=== PATIENT | male | born 1940 | race Caucasian/White ===

== ENCOUNTER 2024-09-20 16:48 | Emergency (ER) | payer OTHER ==
[~2024-09-20] VITALS: Ht 177.8 cm; Wt 99.8 kg
[2024-09-20 17:13] LABS: BASOPHILS # (AUTO) 0.06 K/uL (0.00-0.20); BASOPHILS % (AUTO) 0.6 % (0.0-5.0); EOSINOPHILS # (AUTO) 0.15 K/uL (0.00-0.70); EOSINOPHILS % (AUTO) 1.6 % (0.0-8.0); HEMATOCRIT 33.9 % (42-54); IMMATURE GRANULOCYTE ABSOLUTE 0.07 K/uL (0-1); LYMPHOCYTES # (AUTO) 1.8 K/uL (1.0-4.8); LYMPHOCYTES % (AUTO) 18.8 % (21.0-51.0); MEAN CORPUSCULAR HGB CONC 33.6 g/dL (32.0-36.0); MEAN CORPUSCULAR VOLUME 86.3 fL (79-99); MONOCYTES # (AUTO) 0.8 K/uL (0.1-1.0); MONOCYTES % (AUTO) 8.5 % (3.0-13.0); NEUTROPHILS # (AUTO) 6.5 K/uL (1.8-7.7); NEUTROPHILS % (AUTO) 69.8 % (40.0-77.0); PLATELET COUNT (AUTO) 237 K/uL (130-400); RED BLOOD CELL COUNT(AUTO) 3.93 MIL/uL (4.50-6.20); RED CELL DISTRIBUTION WIDTH 13.2 % (11.0-15.5); WHITE BLOOD COUNT (AUTO) 9.3 K/uL (4.8-10.8)
[2024-09-20 17:21] LABS: CREATININE 1.4 mg/dL (0.5-1.3); POTASSIUM 4.4 mmol/L (3.5-5.1)
[2024-09-20 17:28] LABS: ALBUMIN 3.1 g/dL (3.5-5.0); BILIRUBIN,DIRECT 0.1 mg/dL (0.0-0.3); BILIRUBIN,TOTAL 0.4 mg/dL (0.2-1.0); MAGNESIUM 1.6 mg/dL (1.80-2.40); TOTAL PROTEIN, SERUM 7.1 g/dL (6.0-8.3)
--- NOTE | 2024-09-20 17:55 | NUR ---
PATIENT IN ER LOBBY, PENDING IV SITE & CONSENT FOR CT EXAM.
[2024-09-20] MEDS ORDERED: 0.9%NACL 1000ML 1,000 ML IV ONE (18:00)
--- NOTE | 2024-09-20 18:05 | ERN ---
General Chief Complaint: Abnormal Labs Stated Complaint: ABNORMAL LABS Time Seen by MD: 16:51 History of Present Illness Initial Comments 84-year-old male, history of diabetes, hypertension, atrial fibrillation, cardiac stents, [facility] Patient reports that he has had a few episodes of vomiting yesterday with some epigastric discomfort. He describes an acidic taste in his mouth. He also recently had bronchitis but currently does not have any cough or congestion or fever. He had routine labs drawn and was told that he had a low-sodium, high potassium, and a high blood glucose, which is why he came to the ER. Currently he denies any chest pain or shortness of breath. Denies abdominal pain. He denies any nausea or vomiting diarrhea or dysuria. Past Medical History Past Medical History: A-Fib, Diabetes-Type II Past Surgical History: Other Surgical History Other: ABLATION ROS Dictation CONSTITUTIONAL: No chills, no fever, no weakness, no diaphoresis, no malaise. HEAD/FACE: No signs of trauma. EENT: No eye pain, no blurred vision, no tearing, no double vision, no ear pain, no ear discharge, no nose pain, no nasal congestion, no throat pain, no throat swelling, no mouth pain. RESPIRATORY: No cough, no orthopnea, no SOB, no stridor, no wheezing. CARDIOVASCULAR: No chest pain, no edema, no palpitations, no syncope. GASTROINTESTINAL/ABDOMINAL: No abdominal pain, no constipation, no diarrhea, no nausea, no vomiting. GENITOURINARY: No abnormal discharge, no dysuria, no frequent urination, no hematuria. No complaints of pain in the genitals. MUSCULOSKELETAL: No back pain, no gout, no joint pain, no joint swelling, no muscle pain, no muscle stiffness, no neck pain. INTEGUMENTARY: No change in color, no change in hair/nails, no dryness, no lesion, no lumps, no rash. NEUROLOGICAL/PSYCH: No anxiety, not depressed, no emotional problem, no headache, no numbness, no pre-existing deficit, no history of seizures, no tremors, no weakness. HEMATOLOGIC/LYMPHATIC: Not anemic, no history of blood clots, no apparent bleeding, no bruising, glands not swollen. All Systems Negative, Except as Noted. Physical Exam Physical Exam Dictation VITAL SIGNS: Reviewed. GENERAL APPEARANCE: Alert, oriented x3, no acute distress, obese. HEAD AND FACE: Non-traumatic. EYES: PERRL, pink conjunctivas, eyelid no trauma, anterior chamber clear. EARS: Pinnas intact and no signs of trauma or erythema. Ear canals clear and no discharge. TMs no erythema. NOSE: No discharge, no bleeding. OROPHARYNX: Mouth normal, teeth no caries, tongue pink. Pharynx clear, no erythema. Tonsils no exudates, no abscesses noted. Mucous membrane moist. NECK: Supple, non-tender, no thyromegaly, no masses, no JVD, no bruits. BREAST: Deferred. CHEST: No tenderness, no crepitus, no paradoxical movement, no retractions. LUNGS: Clear, well-ventilated, symmetric, no rales, no wheezing, no rhonchi, no stridor, good breath sounds bilaterally. HEART: Regular rate, regular rhythm, no murmur, no gallops. VASCULAR: No peripheral edema. ABDOMEN: Soft, positive bowel sounds, nondistended, no guarding, nontender, no rebound, no masses no hepatomegaly, no splenomegaly, no Morris's sign, no hernias. RECTAL: Deferred. GENITAL: Deferred. NEUROLOGICAL: Normal speech, gross motor function intact, gross sensory function intact. MUSCULOSKELETAL: Neck nontender, full range of motion, back nontender, full range of motion. EXTREMITIES: Nontender, full range of motion. SKIN: Color pink, dry, no turgor, no rash, no lacerations, no abrasions, no contusions. LYMPHATICS: Deferred. Results Laboratory and Microbiology Lab and Micro Result Laboratory Tests Test 09/20/24 17:06 09/20/24 17:43 White Blood Count 9.3 K/uL (4.8-10.8) Red Blood Count 3.93 MIL/uL (4.50-6.20) L Hemoglobin 11.4 g/dL (14.0-18.0) L Hematocrit 33.9 % (42-54) L Mean Corpuscular Volume 86.3 fL (79-99) Mean Corpuscular Hemoglobin 29.0 pg (27.0-33.0) Mean Corpuscular Hemoglobin Concent 33.6 g/dL (32.0-36.0) Red Cell Distribution Width 13.2 % (11.0-15.5) Platelet Count 237 K/uL (130-400) Mean Platelet Volume 11.6 fL (7.5-10.5) H Immature Granulocyte % (Auto) 0.7 % (0-1) Neutrophils (%) (Auto) 69.8 % (40.0-77.0) Lymphocytes (%) (Auto) 18.8 % (21.0-51.0) L Monocytes (%) (Auto) 8.5 % (3.0-13.0) Eosinophils (%) (Auto) 1.6 % (0.0-8.0) Basophils (%) (Auto) 0.6 % (0.0-5.0) Neutrophils # (Auto) 6.5 K/uL (1.8-7.7) Lymphocytes # (Auto) 1.8 K/uL (1.0-4.8) Monocytes # (Auto) 0.8 K/uL (0.1-1.0) Eosinophils # (Auto) 0.15 K/uL (0.00-0.70) Basophils # (Auto) 0.06 K/uL (0.00-0.20) Absolute Immature Granulocyte (auto 0.07 K/uL (0-1) Nucleated Red Blood Cells 0.0 % (0.0-0.19) Sodium Level 130 mmol/L (136-145) L Potassium Level 4.4 mmol/L (3.5-5.1) Chloride Level 94 mmol/L (101-111) L Carbon Dioxide Level 28 mmol/L (21-32) Blood Urea Nitrogen 39 mg/dL (7-18) H Creatinine 1.4 mg/dL (0.5-1.3) H Glomerular Filtration Rate Calc 50 mL/min (>90) Random Glucose 379 mg/dL (70-105) H Total Calcium 10.2 mg/dL (8.5-10.1) H Magnesium Level 1.60 mg/dL (1.80-2.40) L Total Bilirubin 0.4 mg/dL (0.2-1.0) Direct Bilirubin 0.1 mg/dL (0.0-0.3) Aspartate Amino Transf (AST/SGOT) 12 U/L (10-37) Alanine Aminotransferase (ALT/SGPT) 17 U/L (12-78) Alkaline Phosphatase 102 U/L (50-136) Total Creatine Kinase 103 U/L (21-232) Troponin I High Sensitivity 17.6 ng/L (4-75) B-Type Natriuretic Peptide 68 pg/mL (0-100) Total Protein 7.1 g/dL (6.0-8.3) Albumin 3.1 g/dL (3.5-5.0) L Lipase 44 U/L (16-77) Urine Color LIGHT-YELLOW (YELLOW) Urine Appearance CLEAR (CLEAR) Urine pH 6.0 (5.0-8.0) Urine Specific Plaza 1.012 (1.001-1.031) Urine Protein 30 mg/dL (NEGATIVE) H Urine Glucose (UA) >=1000 mg/dL (NEGATIVE) H Urine Ketones NEGATIVE mg/dL (NEGATIVE) Urine Occult Blood NEGATIVE (NEGATIVE) Urine Nitrate NEGATIVE (NEGATIVE) Urine Bilirubin NEGATIVE mg/dL (NEGATIVE) Urine Urobilinogen 0.2 mg/dL (0.2-1.0) Urine Leukocyte Esterase NEGATIVE Angelica/uL Urine RBC 0-1 /HPF (0-1) Urine WBC 0-1 /HPF (0-1) Urine Bacteria None /HPF (None Seen) MDM CC: Epigastric pain vomiting and nausea yesterday Comorbidities: AFib, diabetes, hypertension, cardiac stent, obesity, advanced age Limitations by social determinants of health: None Differential diagnosis: Electrolyte abnormality, cardiac arrhythmia, GERD, biliary disease, other. EKG: Sinus rhythm rate of 89, left axis deviation, right bundle branch block morphology. No STEMI. Independently interpreted by me. Vital signs: Mild hypertension 145/101, otherwise unremarkable. External chart review: I reviewed the patient's lab work dated September 10, 2024. The CBC is normal. The metabolic panel shows a potassium of 5.6 and a sodium of 127. Bicarb 23. The glucose is 497. Creatinine 1.4. Liver enzymes are within normal limits. The patient's A1c is 14.2. Lab work: CBC shows mild normocytic anemia hemoglobin 11.4. No bands, no shift. Chemistry panel shows a sodium of 130 chloride 94 consistent with dehydration. Creatinine 1.4 BUN of 39, elevated BUN to creatinine ratio consistent with dehydration. GFR is 50. Baseline for patient. Glucose 379. No signs of DKA. Troponin is normal. Lipase is normal. took over the case from previous day shift ER physician: I evaluated the patient at bedside, I will review all the labs there is no alarming abnormality in the laboratory workup. Patient was re-evaluate, denies nausea denies vomiting denies abdominal pain. I will proceed with discharge the patient home with recommendation to come to the emergency department if any symptoms like chest pain, abdominal pain, nausea or vomiting. Patient and was on agreement with the plan. We will not proceed with CT scan of abdomen since patient is feeling better. He must follow up with his primary care physician in the next 24-48 hours. ED Course Orders Procedure Category Date Status Time 12 Lead Ekg Tracing- EKG 09/20/24 Complete Technical 16:53 Cardiac Panel LAB 09/20/24 Complete 16:55 Cbc With Differential LAB 09/20/24 Complete 16:55 Basic Metabolic Panel LAB 09/20/24 Complete 16:55 B-Type Natriuretic LAB 09/20/24 Complete Peptide 16:55 Magnesium LAB 09/20/24 Complete 16:55 Urinalysis Profile LAB 09/20/24 Complete 16:55 Lipase LAB 09/20/24 Complete 16:55 Hepatic Function Panel LAB 09/20/24 Complete 16:55 12 Lead Ekg Tracing- EKG 09/20/24 Complete Technical 16:55 0.9%Nacl 1000ml (Ns PHA 09/20/24 Complete 1000ml) 18:00 Current Medications Medications (Trade) Dose Ordered Sig/Naren Route PRN Reason Start Time Stop Time Status Last Admin Dose Admin Sodium Chloride 1,000 ml @ 0 mls/hr ONCE ONCE IV 09/20/24 18:00 09/20/24 20:51 DC Vital Signs Date Time Temp Pulse Resp B/P (MAP) Pulse Ox O2 Delivery O2 Flow Rate FiO2 09/20/24 20:54 98.4 90 16 136/89 97 Room Air* 0 21 09/20/24 16:49 98.4 95 20 145/101 96 Room Air 0 DX & DISP Disposition: Discharge Departure Impression: Primary Impression: Hyperglycemia Additional Impression: Dehydration Condition: Stable Referrals: RACQUEL NOBLES MD (PCP) Time of Disposition: 20:53 CARROL HOANG DO Sep 20, 2024 18:05 JAVI MULLER MD Sep 20, 2024 20:53
[2024-09-20 18:23] LABS: B-TYPE NATRIURETIC PEPTIDE 68 pg/mL (0-100)
[2024-09-20 18:44] LABS: APPEARANCE,URINE CLEAR (CLEAR); BILIRUBIN,URINE NEGATIVE (NEGATIVE); COLOR,URINE LIGHT-YELLOW (YELLOW); GLUCOSE, URINE (UA) >=1000 mg/dL (NEGATIVE); KETONES,URINE NEGATIVE (NEGATIVE); LEUKOCYTE ESTERASE ,URINE NEGATIVE Leu/uL (NEGATIVE); NITRATE,URINE NEGATIVE (NEGATIVE); OCCULT BLOOD,URINE NEGATIVE (NEGATIVE); PROTEIN,URINE 30 mg/dL (NEGATIVE); UROBILINOGEN,URINE 0.2 mg/dL (0.2-1.0)
[2024-09-20 18:49] LABS: ADD UA MICROSCOPIC YES
[2024-09-20 18:51] LABS: RBC,URINE 0-1 /HPF (0-1); WBC,URINE 0-1 /HPF (0-1)
[2024-09-20 20:54] VITALS: BP 136/89; PULSE 90; RESP 16; TEMP 98.4; O2SAT 97
--- NOTE | 2024-09-20 20:54 | NUR ---
PT NOT DISCHARGED AT THIS TIME, PT PENDING CT AND IV FLUIDS
--- NOTE | 2024-09-21 06:33 | EKG ---
[facility] Test Date: 2024-09-20 Test Time: 16:56:12 Pat Name: MARV KULKARNI Department: ED Room: Gender: M Managing Consultant Clinical Professor: [id number] : 1940 Requested By: ANA PAULA HUERTAS Order Number: [id number] Reading MD: Sara Mirza Measurements Intervals [place] Rate: 89 P: 55 AR: 185 QRS: -90 QRSD: 144 T: 31 QT: 376 QTc: 460 Interpretive Statements Sinus rhythm Atrial premature complex Right bundle branch block Inferior infarct, old Lateral infarct, acute (LAD) No previous ECG available for comparison Electronically Signed On 09-21-2024 16:20:37 CONSULTING DATABASE ADMINISTRATOR by Sara Mirza Please click the below link to view image of tracing.
--- NOTE | 2024-09-21 06:33 | EKG ---
[facility] Test Date: 2024-09-20 Test Time: 17:11:56 Pat Name: MARV KULKARNI Department: ED Room: Gender: M Brick Pointer: [id number] : 1940 Requested By: CARROL HOANG Order Number: [id number] Reading MD: Sara Mirza Measurements Intervals [place] Rate: 79 P: 16 [place]: 186 QRS: -85 QRSD: 146 T: 24 QT: 393 QTc: 450 Interpretive Statements Sinus arrhythmia Right bundle branch block Inferior infarct, old Lateral infarct, acute (LAD) Compared to ECG 09/20/2024 16:56:12 Sinus rhythm no longer present Atrial premature complex(es) no longer present Myocardial infarct finding still present Electronically Signed On 09-21-2024 16:20:40 COST REDUCTION ENGINEER by Sara Mirza Please click the below link to view image of tracing.
== END 2024-09-20 20:57 | disposition home or self-care (01) ==
LOC: EDH 16:48
DX: E11.65 Type 2 diabetes mellitus with hyperglycemia (principal); E86.0 Dehydration; E66.9 Obesity, unspecified; I10 Essential (primary) hypertension; Z95.5 Presence of coronary angioplasty implant and graft; Z98.890 Other specified postprocedural states
CPT/HCPCS: 36415; 80048; 80076; 81001; 82550; 83690; 83735; 83880; 84484; 85025; 93005; 99284